=== PATIENT | female | born 1950 | race Caucasian/White ===

== ENCOUNTER 2016-08-13 06:30 | Day surgery (SDC) | payer MEDICARE, BC ==
[2016-08-13] MEDS ORDERED: Lactated Ringers 1,000 ML IV SCH ×2 (06:51→09:45)
[2016-08-13] MEDS ORDERED: fentaNYL 100 MCG/2 ML SDV ONE (07:35)
[2016-08-13] MEDS ORDERED: Propofol 200 MG/20 ML SDV ONE (07:35)
[2016-08-13] MEDS ORDERED: Midazolam 1 MG/ML 2 ML SDV ONE (07:35)
[2016-08-13 09:29] VITALS: BP 115/74
--- NOTE | 2016-08-14 07:10 | OR ---
DATE OF PROCEDURE: 08/13/2016 PREOPERATIVE DIAGNOSIS: Colon cancer screening. POSTOPERATIVE DIAGNOSIS: Diverticulosis. PROCEDURE: Colonoscopy to the cecum. ANESTHESIA: IV anesthesia with monitored anesthesia care. INDICATION: This 66-year-old white female is referred for a colonoscopy for colon cancer screening. She has never had a colonoscopic exam. I counseled her for the procedure including risks and alternatives and she gave her informed consent to proceed. DESCRIPTION OF PROCEDURE: The patient was placed in the left lateral decubitus position. IV anesthesia was administered by the Anesthesia Service. Time-out was held. A rectal exam was performed, which was unremarkable. The flexible video Olympus colonoscope was introduced through her anus, up her rectum, and out her colon all way to the cecum. En route, we saw several left-sided diverticula. There was no bleeding or inflammation associated with them. To reach the cecum, we had to apply some abdominal compression. Once the cecum was reached, the scope was slowly withdrawn examining the mucosa throughout. No additional mucosal abnormalities were noted. The scope was retroflexed in the rectum with the distal rectum appearing unremarkable. The scope was straightened and removed. She tolerated the procedure well. Luciano Sweet MD /[id number] [email or web address]
== END 2016-08-13 09:33 | disposition home or self-care (01) ==
LOC: JP.SDS 06:30
PROVIDERS: ATTEND Surgery
PROC: 0DJD8ZZ Inspection of Lower Intestinal Tract, Via Natural or Artificial Opening Endoscopic (ICD-10-PCS; principal; 2016-08-13)
DX: Z12.11 Encounter for screening for malignant neoplasm of colon (principal); K57.90 Diverticulosis of intestine, part unspecified, without perforation or abscess without bleeding; Z88.0 Allergy status to penicillin; Z88.2 Allergy status to sulfonamides
CPT/HCPCS: G0121; J2250; J2704; J3010; J7120

== ENCOUNTER 2016-10-12 01:23 | Emergency (ER) | payer MEDICARE, BC ==
[2016-10-12 01:54] VITALS: BP 131/89
--- NOTE | 2016-10-12 02:20 | EDM.PDOC ---
ED HPI GENERAL MEDICAL PROBLEM - General Chief Complaint: Abdominal Pain Stated Complaint: UPPER ABD PAIN Time Seen by Provider: 10/12/16 02:08 Source of Information: Reports: Patient, Family, RN Notes Reviewed History Limitations: Reports: No Limitations - History of Present Illness INITIAL COMMENTS - FREE TEXT/NARRATIVE: 66-year-old female presents emergency department a complaint of abdominal discomfort epigastric pain, she states pain has been going on for most of the day started 6:00 last night, will get nauseated at times no shortness of breath or chest pain no problems with bowel movements Abdomen Pain Score (Numeric/FACES): 5 - Related Data Allergies Allergy/AdvReac Type Severity Reaction Status Date / Time Penicillins Allergy Cannot Verified 10/12/16 01:43 Remember Sulfa (Sulfonamide Allergy Cannot Verified 10/12/16 01:43 Antibiotics) Remember Home Meds: Home Meds Albuterol [Ventolin 2 MG/5 ML] 2 puff INH Q4H PRN 08/11/16 [History] Ascorbic Acid [Vitamin C] 500 mg PO DAILY 08/11/16 [History] Calcium Carb/Magnesium Cmb #10 [George-Mag] 1 tab PO DAILY 08/11/16 [History] Pomegranate Fruit Extract [Pomegranate] 150 mg PO DAILY 08/11/16 [History] Zinc Gluconate [Zinc] 25 mg PO DAILY 08/11/16 [History] Past Medical History HEENT History: Reports: Impaired Vision Other HEENT History: wears glasses Respiratory History: Reports: Asthma Gastrointestinal History: Reports: Hemorrhoids Genitourinary History: Reports: Other (See Below) Other Genitourinary History: l kidney surgery at age 9 [employer] History: Reports: Musculoskeletal History: Reports: Fracture Neurological History: Reports: Concussion, Vertigo - Infectious Disease History Infectious Disease History: Reports: Chicken Pox, Measles - Past Surgical History HEENT Surgical History: Reports: Oral Surgery GI Surgical History: Reports: Appendectomy Musculoskeletal Surgical History: Reports: Hip Replacement Social & Family History - Family History Family Medical History: Noncontributory - Tobacco Use Smoking Status *Q: Never Smoker Second Hand Smoke Exposure: No - Caffeine Use Caffeine Use: Reports: Soda - Alcohol Use Days Per Week of Alcohol Use: 2 Number of Drinks Per Day: 1 Total Drinks Per Week: 2 - Recreational Drug Use Recreational Drug Use: No ED ROS GENERAL - Review of Systems Review Of Systems: See Below Constitutional: Reports: No Symptoms HEENT: Reports: No Symptoms Respiratory: Reports: No Symptoms Cardiovascular: Reports: No Symptoms GI/Abdominal: Reports: Abdominal Pain, Flatus, Nausea. Denies: Constipation, Diarrhea, Vomiting : Reports: No Symptoms Musculoskeletal: Reports: No Symptoms Skin: Reports: No Symptoms ED EXAM, GI/ABD - Physical Exam Exam: See Below Exam Limited By: No Limitations General Appearance: Alert, WD/WN, No Apparent Distress Neck: Normal Inspection, Supple, Non-Tender, Full Range of Motion Respiratory/Chest: No Respiratory Distress, Lungs Clear, Normal Breath Sounds, No Accessory Muscle Use, Chest Non-Tender Cardiovascular: Normal Peripheral Pulses, Regular Rate, Rhythm, No Murmur GI/Abdominal: Normal Bowel Sounds, Soft, Non-Tender, No Distention, No Abnormal Bruit Course - Vital Signs Last Recorded V/S: Last Vital Signs Temp 97.3 F 10/12/16 01:52 Pulse 83 10/12/16 01:52 Resp 20 10/12/16 01:52 BP 131/89 10/12/16 01:52 Pulse Ox 98 10/12/16 01:52 - Orders/Labs/Meds Orders: Active Orders 24 hr Category Date Time Status Cardiac Monitoring [RC] .As Directed Care 10/12/16 02:12 Active EKG Documentation Completion [RC] ASDIRECTED Care 10/12/16 02:14 Active EKG 12 Lead [EK] Stat Ther 10/12/16 02:14 Ordered Labs: Laboratory Tests 10/12/16 10/12/16 Range/Units 02:11 02:20 WBC 7.3 (4.5-11.0) K/uL RBC 4.49 (3.30-5.50) M/uL Hgb 13.3 (12.0-15.0) g/dL Hct 40.1 (36.0-48.0) % MCV 89 (80-98) fL MCH 30 (27-31) pg MCHC 33 (32-36) % Plt Count 198 (150-400) K/uL Neut % (Auto) 68 H (36-66) % Lymph % (Auto) 20 L (24-44) % Towns % (Auto) 11 H (2-6) % Eos % (Auto) 1 L (2-4) % Baso % (Auto) 0 (0-1) % Sodium 139 L (140-148) mmol/L Potassium 4.1 (3.6-5.2) mmol/L Chloride 104 (100-108) mmol/L Carbon Dioxide 25 (21-32) mmol/L Anion Gap 14.1 H (5.0-14.0) mmol/L BUN 21 H (7-18) mg/dL Creatinine 0.8 (0.6-1.0) mg/dL Est Cr Clr Drug Dosing 60.54 mL/min Estimated GFR (MDRD) > 60 (>60) Glucose 113 H (74-106) mg/dL Calcium 8.9 (8.5-10.1) mg/dL Total Bilirubin 0.5 (0.2-1.0) mg/dL AST 48 H (15-37) U/L ALT 37 (12-78) U/L Alkaline Phosphatase 68 (46-116) U/L Troponin I < 0.017 (0.000-0.056) ng/mL Total Protein 6.4 (6.4-8.2) g/dL Albumin 3.4 (3.4-5.0) g/dL Globulin 3.0 (2.3-3.5) g/dL Albumin/Globulin Ratio 1.1 L (1.2-2.2) Lipase 234 (73-393) U/L Departure - Departure Time of Disposition: 03:21 Disposition: Home, Self-Care 01 Condition: good Clinical Impression: Abdominal pain Qualifiers: Abdominal location: generalized Qualified Code(s): R10.84 - Generalized abdominal pain - Discharge Information Forms: ED Department Discharge Additional Instructions: continued use nonsteroidal anti-inflammatories as needed for pain control, Please followup with your primary care provider in 3-5 days if not better, please call return to the emergency department with worsening of symptoms. - My Orders Last 24 Hours: My Active Orders 10/12/16 02:12 Cardiac Monitoring [RC] .As Directed 10/12/16 02:14 EKG Documentation Completion [RC] ASDIRECTED EKG 12 Lead [EK] Stat - Assessment/Plan Last 24 Hours: My Active Orders 10/12/16 02:12 Cardiac Monitoring [RC] .As Directed 10/12/16 02:14 EKG Documentation Completion [RC] ASDIRECTED EKG 12 Lead [EK] Stat Plan: Assessment Acuity = acute Site and laterality = abdominal pain Etiology = probably secondary to muscular strain Manifestations = none Location of injury = home Lab values = CBC, CMP, EKG unremarkable Plan she denied any pain control while leaving the emergency department her pain has subsided plan is to discharge home follow primary care 3-5 days no improvement Patient was in agreement with the plan all questions were answered, they were instructed to return to the emergency department or call for worsening symptoms. This note was dictated using [email or web address] voice recognition software please call with any questions.
== END 2016-10-12 03:30 | disposition home or self-care (01) ==
LOC: JP.ED 01:23
DX: R10.84 Generalized abdominal pain (principal); H54.7 Unspecified visual loss; J45.909 Unspecified asthma, uncomplicated; Z88.0 Allergy status to penicillin; Z88.2 Allergy status to sulfonamides; Z79.899 Other long term (current) drug therapy; Z90.49 Acquired absence of other specified parts of digestive tract; Z96.649 Presence of unspecified artificial hip joint
CPT/HCPCS: 36415; 80053; 83690; 84484; 85025; 93005; 93010; 99283; 99284-25

== ENCOUNTER 2016-11-12 19:42 | Inpatient (IN) | payer MEDICARE, BC ==
[2016-11-12] MEDS ORDERED: Ondansetron 4 MG/2 ML SDV IVPUSH ONE (20:47)
[2016-11-12] MEDS ORDERED: Sodium Chloride 0.9% 1,000 ML IV SCH (21:00)
[2016-11-12] MEDS ORDERED: Iopamidol 612 MG/ML 100 ML Bottle IV PRN (21:05)
[2016-11-12] MEDS: Sodium Chloride 0.9% 10 ML Syringe FLUSH PRN ×2 (21:46→21:53)
--- NOTE | 2016-11-12 23:29 | EDM.PDOC ---
ED HPI GENERAL MEDICAL PROBLEM - General Chief Complaint: Gastrointestinal Problem Stated Complaint: NAUSEA / VOMITING Time Seen by Provider: 11/12/16 20:22 Source of Information: Reports: Patient History Limitations: Reports: No Limitations - History of Present Illness INITIAL COMMENTS - FREE TEXT/NARRATIVE: History of present illness: [66-year-old female presenting with intermittent colicky epigastric and right upper quadrant abdominal pain over the last couple of weeks sometimes associated with nausea and vomiting. She's never had anything like this before. She's had no fevers or chills with this no diarrhea no dysuria. She still has her gallbladder.] Review of systems: As per history of present illness and below otherwise all systems reviewed and negative. Past medical history: As per history of present illness and as reviewed below otherwise noncontributory. Surgical history: As per history of present illness and as reviewed below otherwise noncontributory. Social history: No reported history of drug or alcohol abuse. Family history: As per history of present illness and as reviewed below otherwise noncontributory. Physical exam: HEENT: Atraumatic, normocephalic, pupils reactive, negative for conjunctival pallor or scleral icterus, mucous membranes moist, throat clear, neck supple, nontender, trachea midline. Lungs: Clear to auscultation, breath sounds equal bilaterally, chest nontender. Heart: S1S2, regular, negative for clicks, rubs, or JVD. Abdomen: She has some tenderness to palpation of her epigastrium and right upper quadrant but no peritoneal signs bowel sounds are active Pelvis: Stable nontender. Genitourinary: Deferred. Rectal: Deferred. Extremities: Atraumatic, negative for cords or calf pain. Neurovascular unremarkable. Neuro: Awake, alert, oriented. Cranial nerves II through XII unremarkable. Cerebellum unremarkable. Motor and sensory unremarkable throughout. Exam nonfocal. Diagnostics: [Her CBC shows an elevated white count of 18,000 her liver enzymes are also elevated as well as alkaline phosphatase. CT examination is showing distended gallbladder] Therapeutics: [She's received IV fluids while here and has been comfortable] Impression: [Cholecystitis] Plan: [She's being admitted. I spoke with Milla about the admission. Dr. Blackwell is international representative for surgery] Definitive disposition and diagnosis as appropriate pending reevaluation and review of above. Upper Abdominal Pain Score (Numeric/FACES): 7 - Related Data Allergies Allergy/AdvReac Type Severity Reaction Status Date / Time Penicillins Allergy Cannot Verified 11/12/16 20:22 Remember Sulfa (Sulfonamide Allergy Cannot Verified 11/12/16 20:22 Antibiotics) Remember Home Meds: Home Meds Albuterol [Ventolin 2 MG/5 ML] 2 puff INH Q4H PRN 08/11/16 [History] Ascorbic Acid [Vitamin C] 500 mg PO DAILY 08/11/16 [History] Calcium Carb/Magnesium Cmb #10 [George-Mag] 1 tab PO DAILY 08/11/16 [History] Pomegranate Fruit Extract [Pomegranate] 150 mg PO DAILY 08/11/16 [History] Zinc Gluconate [Zinc] 25 mg PO DAILY 08/11/16 [History] Past Medical History HEENT History: Reports: Allergic Rhinitis, Impaired Vision Other HEENT History: wears glasses Respiratory History: Reports: Asthma Gastrointestinal History: Reports: Hemorrhoids Genitourinary History: Reports: Other (See Below) Other Genitourinary History: left kidney surgery at age 9 [employer] WORKER History: Reports: Musculoskeletal History: Reports: Fracture Neurological History: Reports: Concussion, Vertigo - Infectious Disease History Infectious Disease History: Reports: Chicken Pox, Measles, Shingles - Past Surgical History HEENT Surgical History: Reports: Oral Surgery, Other (See Below) Other HEENT Surgeries/Procedures: benign cycst removed in neck GI Surgical History: Reports: Appendectomy Musculoskeletal Surgical History: Reports: Hip Replacement Social & Family History - Family History Family Medical History: Noncontributory - Tobacco Use Smoking Status *Q: Never Smoker Second Hand Smoke Exposure: No - Caffeine Use Caffeine Use: Reports: None - Alcohol Use Days Per Week of Alcohol Use: 3 Number of Drinks Per Day: 1 Total Drinks Per Week: 3 - Recreational Drug Use Recreational Drug Use: No ED ROS GENERAL - Review of Systems Review Of Systems: ROS reveals no pertinent complaints other than HPI. ED EXAM, GI/ABD - Physical Exam Exam: See Below Course - Vital Signs Last Recorded V/S: Last Vital Signs Temp 37.6 C 11/12/16 20:30 Pulse 114 H 11/12/16 20:30 Resp 18 11/12/16 20:30 BP 111/76 11/12/16 20:30 Pulse Ox 96 11/12/16 20:30 - Orders/Labs/Meds Orders: Active Orders 24 hr Category Date Time Status Abdomen Pelvis w Cont [CT] Stat Exams 11/12/16 20:44 Taken Sodium Chloride 0.9% [Normal Saline] 1,000 ml Med 11/12/16 21:00 Active IV ASDIRECTED Sodium Chloride 0.9% [Saline Flush] Med 11/12/16 21:05 Active 10 ml FLUSH ONETIME PRN Medication Orders Sodium Chloride (Normal Saline) 1,000 mls @ 250 mls/hr IV ASDIRECTED YRN Last Admin: 11/12/16 21:46 Dose: 250 mls/hr Sodium Chloride (Saline Flush) 10 ml FLUSH ONETIME PRN PRN Reason: PER RADIOLOGY PROTOCOL Last Admin: 11/12/16 21:53 Dose: 10 ml Admin: 11/12/16 21:46 Dose: 10 ml Labs: Laboratory Tests 11/12/16 11/12/16 11/12/16 Range/Units 20:44 20:44 20:44 WBC 18.2 H (4.5-11.0) K/uL RBC 4.74 (3.30-5.50) M/uL Hgb 14.1 (12.0-15.0) g/dL Hct 42.0 (36.0-48.0) % MCV 89 (80-98) fL MCH 30 (27-31) pg MCHC 34 (32-36) % Plt Count 175 (150-400) K/uL Neut % (Auto) 92 H (36-66) % Lymph % (Auto) 2 L (24-44) % [place] % (Auto) 6 (2-6) % Eos % (Auto) 0 L (2-4) % Baso % (Auto) 0 (0-1) % Sodium 137 L (140-148) mmol/L Potassium 3.7 (3.6-5.2) mmol/L Chloride 102 (100-108) mmol/L Carbon Dioxide 29 (21-32) mmol/L Anion Gap 9.7 (5.0-14.0) mmol/L BUN 15 (7-18) mg/dL Creatinine 1.0 (0.6-1.0) mg/dL Est Cr Clr Drug Dosing 48.43 mL/min Estimated GFR (MDRD) 56 L (>60) Glucose 106 (74-106) mg/dL Lactic Acid 1.5 (0.4-2.0) mmol/L Calcium 9.2 (8.5-10.1) mg/dL Total Bilirubin 2.7 H D (0.2-1.0) mg/dL AST 461 H D (15-37) U/L ALT 328 H (12-78) U/L Alkaline Phosphatase 191 H D (46-116) U/L C-Reactive Protein 1.03 H (0.0-0.3) mg/dL Total Protein 7.0 (6.4-8.2) g/dL Albumin 3.3 L (3.4-5.0) g/dL Globulin 3.7 H (2.3-3.5) g/dL Albumin/Globulin Ratio 0.9 L (1.2-2.2) Amylase (25-115) U/L Lipase (73-393) U/L Urine Color Urine Appearance Urine pH (4.5-8.0) Ur Specific [place] (1.008-1.030) Urine Protein (NEGATIVE) mg/dL Urine Glucose (UA) (NEGATIVE) mg/dL Urine Ketones (NEGATIVE) mg/dL Urine Occult Blood (NEGATIVE) Urine Nitrite (NEGATIVE) Urine Bilirubin (NEGATIVE) Urine Urobilinogen (NORMAL) mg/dL Ur Leukocyte Esterase (NEGATIVE) Urine RBC (0-5) Urine WBC (0-5) Ur Epithelial Cells Amorphous Sediment Urine Bacteria Urine Mucus 11/12/16 11/12/16 Range/Units 20:46 22:33 WBC (4.5-11.0) K/uL RBC (3.30-5.50) M/uL Hgb (12.0-15.0) g/dL Hct (36.0-48.0) % MCV (80-98) fL MCH (27-31) pg MCHC (32-36) % Plt Count (150-400) K/uL Neut % (Auto) (36-66) % Lymph % (Auto) (24-44) % [place] % (Auto) (2-6) % Eos % (Auto) (2-4) % Baso % (Auto) (0-1) % Sodium (140-148) mmol/L Potassium (3.6-5.2) mmol/L Chloride (100-108) mmol/L Carbon Dioxide (21-32) mmol/L Anion Gap (5.0-14.0) mmol/L BUN (7-18) mg/dL Creatinine (0.6-1.0) mg/dL Est Cr Clr Drug Dosing mL/min Estimated GFR (MDRD) (>60) Glucose (74-106) mg/dL Lactic Acid (0.4-2.0) mmol/L Calcium (8.5-10.1) mg/dL Total Bilirubin (0.2-1.0) mg/dL AST (15-37) U/L ALT (12-78) U/L Alkaline Phosphatase (46-116) U/L C-Reactive Protein (0.0-0.3) mg/dL Total Protein (6.4-8.2) g/dL Albumin (3.4-5.0) g/dL Globulin (2.3-3.5) g/dL Albumin/Globulin Ratio (1.2-2.2) Amylase 95 (25-115) U/L Lipase 163 (73-393) U/L Urine Color Yellow Urine Appearance Slightly cloudy Urine pH 9.0 H (4.5-8.0) Ur Specific [place] 1.010 (1.008-1.030) Urine Protein Negative (NEGATIVE) mg/dL Urine Glucose (UA) Normal (NEGATIVE) mg/dL Urine Ketones Negative (NEGATIVE) mg/dL Urine Occult Blood Negative (NEGATIVE) Urine Nitrite Negative (NEGATIVE) Urine Bilirubin Negative (NEGATIVE) Urine Urobilinogen Normal (NORMAL) mg/dL Ur Leukocyte Esterase Negative (NEGATIVE) Urine RBC Not seen (0-5) Urine WBC 0-5 (0-5) Ur Epithelial Cells Rare Amorphous Sediment Not seen Urine Bacteria Rare Urine Mucus Not seen Meds: Medications Generic Name Dose Route Start Last Admin Trade Name Freq PRN Reason Stop Dose Admin Sodium Chloride 1,000 mls @ 250 mls/hr 11/12/16 21:00 11/12/16 21:46 Normal Saline IV 250 mls/hr ASDIRECTED YRN Administration Sodium Chloride 10 ml 11/12/16 21:05 11/12/16 21:53 Saline Flush FLUSH 10 ml ONETIME PRN Administration PER RADIOLOGY PROTOCOL Discontinued Medications Generic Name Dose Route Start Last Admin Trade Name Freq PRN Reason Stop Dose Admin Sodium Chloride 70 mls @ 3 mls/sec 07/12/17 21:05 11/12/16 21:53 Normal Saline IV 11/12/16 21:06 3 mls/sec ONETIME ONE Administration Iopamidol 90 ml 11/12/16 21:05 11/12/16 21:53 Isovue-300 (61%) IV 11/12/16 21:06 100 ml . DIRECTED PRN Administration RADIOLOGY EXAM Ondansetron HCl 4 mg 11/12/16 20:47 11/12/16 21:44 Zofran IVPUSH 11/12/16 20:48 4 mg ONETIME ONE Administration Departure - Departure Time of Disposition: 23:28 Disposition: Admitted As Inpatient 67 Condition: Good Clinical Impression: Cholecystitis - Discharge Information Forms: ED Department Discharge - My Orders Last 24 Hours: My Active Orders 11/12/16 20:44 Abdomen Pelvis w Cont [CT] Stat 11/12/16 21:00 Sodium Chloride 0.9% [Normal Saline] 1,000 ml IV ASDIRECTED 11/12/16 21:05 Sodium Chloride 0.9% [Saline Flush] 10 ml FLUSH ONETIME PRN - Assessment/Plan Last 24 Hours: My Active Orders 11/12/16 20:44 Abdomen Pelvis w Cont [CT] Stat 11/12/16 21:00 Sodium Chloride 0.9% [Normal Saline] 1,000 ml IV ASDIRECTED 11/12/16 21:05 Sodium Chloride 0.9% [Saline Flush] 10 ml FLUSH ONETIME PRN
[2016-11-13] MEDS ORDERED: Albuterol 0.083% 2.5 MG/3 ML Neb Soln NEB PRN (00:52)
[2016-11-13] MEDS ORDERED: Ondansetron 4 MG Tab.DIS PO PRN (00:52)
[2016-11-13] MEDS ORDERED: Morphine 2 MG/ML Syringe IVPUSH PRN (00:52)
[2016-11-13] MEDS ORDERED: Zolpidem 5 MG Tab PO PRN (00:52)
[2016-11-13] MEDS ORDERED: LORazepam 2 MG/ML MDV IV PRN (00:52)
[2016-11-13] MEDS ORDERED: Bisacodyl 5 MG Tab PO PRN (00:52)
[2016-11-13] MEDS ORDERED: Albuterol 2 MG/5 ML Syrup ML 473 ML Bottle PRN (00:52)
[2016-11-13] MEDS ORDERED: oxyCODONE 5 MG Tab PO PRN (00:52)
[2016-11-13] MEDS: Acetaminophen 325 MG Tab PO PRN (01:14)
[2016-11-13] MEDS: Sodium Chloride 0.9% 1,000 ML IV SCH ×3 (02:21→22:19)
--- NOTE | 2016-11-13 02:29 | PCM.HP ---
H&P History of Present Illness - General Date of Service: 11/12/16 Admit Problem/Dx: Admission Diagnosis/Problem Admission Diagnosis/Problem Cholecystitis Source of Information: Patient History Limitations: Reports: No Limitations - History of Present Illness Initial Comments - Free Text/Narative: History of present illness: [66-year-old female presenting with intermittent colicky epigastric and right upper quadrant abdominal pain over the last couple of weeks sometimes associated with nausea and vomiting. She's never had anything like this before. She's had no fevers or chills with this no diarrhea no dysuria. She still has her gallbladder.] Review of systems: As per history of present illness and below otherwise all systems reviewed and negative. Past medical history: As per history of present illness and as reviewed below otherwise noncontributory. Surgical history: As per history of present illness and as reviewed below otherwise noncontributory. Social history: No reported history of drug or alcohol abuse. Family history: As per history of present illness and as reviewed below otherwise noncontributory. Physical exam: HEENT: Atraumatic, normocephalic, pupils reactive, negative for conjunctival pallor or scleral icterus, mucous membranes moist, throat clear, neck supple, nontender, trachea midline. Lungs: Clear to auscultation, breath sounds equal bilaterally, chest nontender. Heart: S1S2, regular, negative for clicks, rubs, or JVD. Abdomen: She has some tenderness to palpation of her epigastrium and right upper quadrant but no peritoneal signs bowel sounds are active Pelvis: Stable nontender. Genitourinary: Deferred. Rectal: Deferred. Extremities: Atraumatic, negative for cords or calf pain. Neurovascular unremarkable. Neuro: Awake, alert, oriented. Cranial nerves II through XII unremarkable. Cerebellum unremarkable. Motor and sensory unremarkable throughout. Exam nonfocal. Diagnostics: [Her CBC shows an elevated white count of 18,000 her liver enzymes are also elevated as well as alkaline phosphatase. CT examination is showing distended gallbladder] Therapeutics: [She's received IV fluids while here and has been comfortable] Impression: [Cholecystitis] Plan: [She's being admitted. Onset of Symptoms: Reports: Gradual Duration of Symptoms: Reports: Recurring, Waxing/Waning Location: Reports: Abdomen Quality: Reports: Same as Previous Episode Severity: Severe Improves with: Reports: Medication, Movement, Rest Worsens with: Reports: Movement Context: Reports: Other Associated Symptoms: Reports: Nausea/Vomiting Upper Abdominal Pain Score (Numeric/FACES): 7 Headache Pain Score (Numeric/FACES): 3 - Related Data Allergies/Adverse Reactions: Allergies Allergy/AdvReac Type Severity Reaction Status Date / Time Penicillins Allergy Cannot Verified 11/12/16 20:22 Remember Sulfa (Sulfonamide Allergy Cannot Verified 11/12/16 20:22 Antibiotics) Remember Home Medications: Home Meds Albuterol [Ventolin 2 MG/5 ML] 2 puff INH Q4H PRN 08/11/16 [History] Ascorbic Acid [Vitamin C] 500 mg PO DAILY 08/11/16 [History] Calcium Carb/Magnesium Cmb #10 [George-Mag] 1 tab PO DAILY 08/11/16 [History] Pomegranate Fruit Extract [Pomegranate] 150 mg PO DAILY 08/11/16 [History] Zinc Gluconate [Zinc] 25 mg PO DAILY 08/11/16 [History] Past Medical History HEENT History: Reports: Allergic Rhinitis, Impaired Vision Other HEENT History: wears glasses Respiratory History: Reports: Asthma, Other (See Below) Other Respiratory History: hay fever Gastrointestinal History: Reports: Hemorrhoids Genitourinary History: Reports: Other (See Below) Other Genitourinary History: left kidney surgery at age 9 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: Musculoskeletal History: Reports: Fracture Neurological History: Reports: Concussion, Vertigo - Infectious Disease History Infectious Disease History: Reports: Chicken Pox, Measles, Shingles - Past Surgical History HEENT Surgical History: Reports: Oral Surgery, Other (See Below) Other HEENT Surgeries/Procedures: benign cycst removed in neck GI Surgical History: Reports: Appendectomy Musculoskeletal Surgical History: Reports: Hip Replacement Social & Family History - Family History Family Medical History: Noncontributory - Tobacco Use Smoking Status *Q: Never Smoker Second Hand Smoke Exposure: No - Caffeine Use Caffeine Use: Reports: None - Alcohol Use Days Per Week of Alcohol Use: 3 Number of Drinks Per Day: 1 Total Drinks Per Week: 3 Date of Last Drink: 11/08/16 Time of Last Drink: 19:00 - Recreational Drug Use Recreational Drug Use: No - Living Situation & Occupation Living situation: Reports: Occupation: Employed (own a resort, 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 .) H&P Review of Systems - Review of Systems: Review Of Systems: See Below General: Reports: Fever, Chills, Malaise, Fatigue HEENT: Reports: No Symptoms Pulmonary: Reports: No Symptoms Cardiovascular: Reports: No Symptoms Gastrointestinal: Reports: Abdominal Pain, Nausea, Vomiting Genitourinary: Reports: No Symptoms Musculoskeletal: Reports: Back Pain Skin: Reports: No Symptoms Psychiatric: Reports: No Symptoms Neurological: Reports: No Symptoms Hematologic/Lymphatic: Reports: No Symptoms Immunologic: Reports: No Symptoms Exam - Exam Exam: See Below - Vital Signs Vital Signs: Last Vital Signs Temp 37.3 C 11/13/16 00:52 Pulse 80 11/13/16 00:52 Resp 20 11/13/16 00:52 BP 105/55 L 11/13/16 00:52 Pulse Ox 95 11/13/16 00:52 Weight: 56.382 kg - Exam General: Alert, Oriented, Cooperative, Mild Distress, Sedated HEENT: PERRLA, Hearing Intact, Mucosa Moist & [place], Nares Patent, Normal Nasal Septum, Posterior Pharynx Clear, Conjunctiva Clear, EOMI, EACs Clear, TMs Clear Neck: Supple, Trachea Midline, 2 Lungs: Clear to Auscultation, Normal Respiratory Effort Cardiovascular: Regular Rate, Regular Rhythm Abdomen: Normal Bowel Sounds, Soft, Tenderness (upper abdomen; more intense pain at right upper quadrant) Back Exam: Normal Inspection, Full Range of Motion, NT Extremities: 3, Normal Inspection, 10 Skin: Warm, Dry, Intact Neurological: Cranial Nerves Intact, Reflexes Equal Bilateral Neuro Extensive - Mental Status: Alert, Oriented x3, Normal Mood/Affect, Normal Cognition Neuro Extensive - Motor, Sensory, Reflexes: Normal Gait, Normal Reflexes Psychiatric: Alert, Normal Affect, Normal Mood - Patient Data Result Diagrams: 11/13/16 05:05 11/13/16 05:05 *Q Meaningful Use (ADM) - VTE *Q VTE Criteria *Q: - Stroke *Q Stroke Criteria *Q: - AMI *Q AMI Criteria *Q: - Problem List (1) Cholecystitis SNOMED Code(s): 26960130 ICD Code: K81.9 - CHOLECYSTITIS, UNSPECIFIED Status: Acute Current Visit : Yes Problem List Initiated/Reviewed/Updated: Yes Orders Last 24hrs: Active Orders 24 hr Category Date Time Status Patient Status [ADT] Routine ADT 11/13/16 00:52 Active Intake and Output [RC] QSHIFT Care 11/13/16 00:52 Active Notify Provider Consults [RC] ASDIRECTED Care 11/13/16 00:52 Active Oxygen Therapy [RC] PRN Care 11/13/16 00:52 Active RT Aerosol Therapy [RC] ASDIRECTED Care 11/13/16 00:52 Active Up ad Giovana [RC] ASDIRECTED Care 11/13/16 00:52 Active VTE/DVT Education [RC] Per Unit Routine Care 11/13/16 00:52 Active Vital Signs [RC] Q4H Care 11/13/16 00:52 Active Consult to Physician [CONS] Routine Cons 11/13/16 00:52 Ordered Nothing per Oral After Midnight Diet [DIET] Diet 11/13/16 Breakfast Active Abdomen Ltd [US] Stat Exams 11/13/16 07:10 Ordered BASIC METABOLIC PANEL,BMP [CHEM] AM Lab 11/13/16 05:11 Ordered CBC WITH AUTO DIFF [HEME] AM Lab 11/13/16 05:11 Ordered Acetaminophen [Tylenol] Med 11/13/16 00:52 Active 650 mg PO Q4H PRN Albuterol [Proventil Neb Soln] Med 11/13/16 00:52 Active 2.5 mg NEB Q4H PRN Albuterol [Ventolin 2 MG/5 ML] Med 11/13/16 00:52 Pending DOSE mg .XX Q4H PRN Bisacodyl [Dulcolax] Med 11/13/16 00:52 Active 5 mg PO DAILY PRN Docusate Sodium [Colace] Med 11/13/16 00:52 Active 100 mg PO BID PRN LORazepam [Ativan] Med 11/13/16 00:52 Active 1 mg IV Q6H PRN Morphine Med 11/13/16 00:52 Active 2 mg IVPUSH Q2H PRN Ondansetron [Zofran ODT] Med 11/13/16 00:52 Active 4 mg PO Q6H PRN Pantoprazole [ProTONIX] Med 11/13/16 09:00 Active 40 mg PO DAILY Sodium Chloride 0.9% [Normal Saline] 1,000 ml Med 11/13/16 00:52 Active IV ASDIRECTED Zolpidem [Ambien] Med 11/13/16 00:52 Active 5 mg PO BEDTIME PRN oxyCODONE Med 11/13/16 00:52 Active 5 mg PO Q4H PRN Sequential Compression Device [OM.PC] Per Unit Routine Oth 11/13/16 00:52 Ordered Resuscitation Status Routine Resus Stat 11/12/16 23:54 Ordered Medication Orders Acetaminophen (Tylenol) 650 mg PO Q4H PRN PRN Reason: Pain (Mild 1-3)/fever Last Admin: 11/13/16 01:14 Dose: 325 mg Albuterol (Proventil Neb Soln) 2.5 mg NEB Q4H PRN PRN Reason: Shortness Of Breath/wheezing Albuterol (Ventolin 2 Mg/5 Ml) mg .XX Q4H PRN PRN Reason: Dyspnea Bisacodyl (Dulcolax) 5 mg PO DAILY PRN PRN Reason: Constipation Docusate Sodium (Colace) 100 mg PO BID PRN PRN Reason: Constipation Sodium Chloride (Normal Saline) 1,000 mls @ 250 mls/hr IV ASDIRECTED [facility] Last Admin: 11/12/16 21:46 Dose: 250 mls/hr Sodium Chloride (Normal Saline) 1,000 mls @ 125 mls/hr IV ASDIRECTED [facility] Last Admin: 11/13/16 02:21 Dose: 125 mls/hr Lorazepam (Ativan) 1 mg IV Q6H PRN PRN Reason: Nausea/Vomiting Morphine Sulfate (Morphine) 2 mg IVPUSH Q2H PRN PRN Reason: Pain (severe 7-10) Ondansetron HCl (Zofran Odt) 4 mg PO Q6H PRN PRN Reason: Nausea able to take PO Oxycodone HCl (Oxycodone) 5 mg PO Q4H PRN PRN Reason: Pain (moderate 4-6) Pantoprazole Sodium (Protonix) 40 mg PO DAILY [facility] Sodium Chloride (Saline Flush) 10 ml FLUSH ONETIME PRN PRN Reason: PER RADIOLOGY PROTOCOL Last Admin: 11/12/16 21:53 Dose: 10 ml Admin: 11/12/16 21:46 Dose: 10 ml Zolpidem Tartrate (Ambien) 5 mg PO BEDTIME PRN PRN Reason: Sleep Assessment/Plan Comment:: ASSESSMENT AND PLAN: History of present illness: 66-year-old female presenting with intermittent colicky epigastric and right upper quadrant abdominal pain over the last couple of weeks sometimes associated with nausea and vomiting. She's never had anything like this before. She's had no fevers or chills with this no diarrhea no dysuria. She still has her gallbladder.] Plan Cholecystitis -Admit to [address] [place] [address] for further monitoring -IV Fluids for rehydration NS at 125 mL per hour -Advise to notify nurses of any chest pain or other symptoms -medication order for pain control -medication order for nausea -And a.m. labs: CBC, BMP -abdomen ultrasound in am -consult to Surgery, after ultrasound abdomen is completed this morning. Maintenance issues -Orders home meds: -Nutrition: consistent diet -Rodríguez catheter not indicated at this time -DVT: SCD -PPI; IV Protonix 40mg daily CODE STATUS: FULL CODE Admission status: Admit to [address] [place] [address] Admission justification. This patient will be admitted for inpatient services and is medically appropriate meeting medical necessity for inpatient admission as outlined in my documentation. I reasonably expect the patient will require inpatient services that span. Time over 2 midnights. I reasonably expect this patient to be discharged or transferred within 96 hours after admission to the critical access hospital. Disposition; home Primary care provider: Tayla Messina Hospitalist: Dr. Tsai
--- NOTE | 2016-11-13 08:36 | US ---
Abdomen Ltd INDICATION: dilatated gall bladder FINDINGS: Normal hepatic echotexture. No intra- or extrahepatic bile duct dilatation. Common bile du ct measures 6 mm. Small amount of gallbladder sludge; difficult to exclude a polyp within the sludge . No gallbladder wall thickening. The gallbladder measures 5.0 cm x 6.2 cm. Aorta and IVC are normal where visualized. Pancreas is normal where seen. Survey views of the right kidney are negative for hydronephrosis. Normal variant extrarenal right renal pelvis. IMPRESSION: Small amount of gallbladder sludge; difficult to exclude polyp within the sludge.
[2016-11-13] MEDS ORDERED: Pantoprazole 40 MG Tab.CR PO SCH (09:00)
[2016-11-13] MEDS ORDERED: Albuterol 8 GM Inhaler INH PRN (10:18)
[2016-11-13] MEDS: Pantoprazole 40 MG Tab.CR PO SCH (10:20)
--- NOTE | 2016-11-13 12:15 | PCM.PN ---
- General Info Date of Service: 11/13/16 Functional Status: Reports: pain controlled, urinating - Review of Systems General: Reports: Fever, Weakness. Denies: Chills Pulmonary: Reports: no symptoms Cardiovascular: Reports: No Symptoms Gastrointestinal: Reports: Abdominal pain, Decreased appetite, Nausea. Denies: Constipation, Difficulty swallowing, Hematochezia, Melena, Vomiting Systems Review Comment:: This patient is a 66-year-old woman who is admitted through the emergency department with upper abdominal pain associated with nausea and vomiting. On evaluation is found to have elevated white blood cell count as well as elevation in liver enzymes. CT scan of the abdomen was done in the emergency department and showed no obvious abnormalities to explain her symptoms. Ultrasound was also obtained and showed sludge within the gallbladder but no other significant abnormalities. On laboratory tests morning her bilirubin remains elevated, white blood cell count has improved modestly. Symptoms of abdominal pain as well as nausea have improved significantly since admission but not totally resolved. - Patient Data Vitals - most recent: Last Vital Signs Temp 97.7 F 11/13/16 07:00 Pulse 61 11/13/16 07:00 Resp 18 11/13/16 07:00 BP 100/52 L 11/13/16 07:00 Pulse Ox 98 11/13/16 07:00 Weight - most recent: 124 lb 4.8 oz I&O - last 24 hours: Intake & Output 11/12/16 11/13/16 11/13/16 22:59 06:59 14:59 Intake Total 490 Output Total 500 Balance -10 Lab Results last 24 hrs: Laboratory Results - last 24 hr 11/13/16 11/13/16 11/13/16 Range/Units 05:05 05:05 08:37 WBC 16.7 H (4.5-11.0) K/uL RBC 4.17 (3.30-5.50) M/uL Hgb 12.4 (12.0-15.0) g/dL Hct 37.2 (36.0-48.0) % MCV 89 (80-98) fL MCH 30 (27-31) pg MCHC 33 (32-36) % Plt Count 160 (150-400) K/uL Neut % (Auto) 89 H (36-66) % Lymph % (Auto) 5 L (24-44) % [place] % (Auto) 6 (2-6) % Eos % (Auto) 0 L (2-4) % Baso % (Auto) 0 (0-1) % Sodium 142 (140-148) mmol/L Potassium 4.0 (3.6-5.2) mmol/L Chloride 110 H (100-108) mmol/L Carbon Dioxide 25 (21-32) mmol/L Anion Gap 11.0 (5.0-14.0) mmol/L BUN 12 (7-18) mg/dL Creatinine 0.9 (0.6-1.0) mg/dL Est Cr Clr Drug Dosing 53.81 mL/min Estimated GFR (MDRD) > 60 (>60) Glucose 105 (74-106) mg/dL Calcium 8.6 (8.5-10.1) mg/dL Total Bilirubin 2.6 H (0.2-1.0) mg/dL Direct Bilirubin 1.99 H (0.0-0.2) mg/dL Indirect Bilirubin 0.61 AST 281 H (15-37) U/L ALT 278 H (12-78) U/L Alkaline Phosphatase 152 H (46-116) U/L Total Protein 5.8 L (6.4-8.2) g/dL Albumin 2.7 L (3.4-5.0) g/dL Globulin 3.1 (2.3-3.5) g/dL Albumin/Globulin Ratio 0.9 L (1.2-2.2) Med Orders - Current: Current Medications Acetaminophen (Tylenol) 650 mg PO Q4H PRN PRN Reason: Pain (Mild 1-3)/fever Last Admin: 11/13/16 01:14 Dose: 325 mg Albuterol (Proventil Neb Soln) 2.5 mg NEB Q4H PRN PRN Reason: Shortness Of Breath/wheezing Albuterol (Ventolin Hfa) 0 gm INH Q4H PRN PRN Reason: Dyspnea Bisacodyl (Dulcolax) 5 mg PO DAILY PRN PRN Reason: Constipation Docusate Sodium (Colace) 100 mg PO BID PRN PRN Reason: Constipation Sodium Chloride (Normal Saline) 1,000 mls @ 125 mls/hr IV ASDIRECTED YRN Last Admin: 11/13/16 10:23 Dose: 125 mls/hr Meropenem 1 gm/ Sodium (Chloride) 50 mls @ 100 mls/hr IV Q8H [facility] Last Admin: 11/13/16 10:23 Dose: 100 mls/hr Lorazepam (Ativan) 1 mg IV Q6H PRN PRN Reason: Nausea/Vomiting Morphine Sulfate (Morphine) 2 mg IVPUSH Q2H PRN PRN Reason: Pain (severe 7-10) Ondansetron HCl (Zofran Odt) 4 mg PO Q6H PRN PRN Reason: Nausea able to take PO Oxycodone HCl (Oxycodone) 5 mg PO Q4H PRN PRN Reason: Pain (moderate 4-6) Pantoprazole Sodium (Protonix) 40 mg PO ACBREAKFAST [facility] Last Admin: 11/13/16 10:20 Dose: Not Given Sodium Chloride (Saline Flush) 10 ml FLUSH ONETIME PRN PRN Reason: PER RADIOLOGY PROTOCOL Last Admin: 11/12/16 21:53 Dose: 10 ml Zolpidem Tartrate (Ambien) 5 mg PO BEDTIME PRN PRN Reason: Sleep Discontinued Medications Sodium Chloride (Normal Saline) 1,000 mls @ 250 mls/hr IV ASDIRECTED [facility] Last Admin: 11/12/16 21:46 Dose: 250 mls/hr Sodium Chloride (Normal Saline) 70 mls @ 3 mls/sec IV ONETIME ONE Stop: 11/12/16 21:06 Last Admin: 11/12/16 21:53 Dose: 3 mls/sec Iopamidol (Isovue-300 (61%)) 90 ml IV . DIRECTED PRN PRN Reason: RADIOLOGY EXAM Stop: 11/12/16 21:06 Last Admin: 11/12/16 21:53 Dose: 100 ml Ondansetron HCl (Zofran) 4 mg IVPUSH ONETIME ONE Stop: 11/12/16 20:48 Last Admin: 11/12/16 21:44 Dose: 4 mg Pantoprazole Sodium (Protonix) 40 mg PO DAILY YRN - Exam Quality Assessment: DVT prophylaxis General: alert, oriented, cooperative Lungs: Clear to auscultation, Normal respiratory effort Cardiovascular: Regular Rate, Regular Rhythm, No Murmurs Abdomen: bowel sounds present, soft, tenderness, distension. No: rigidity, rebound, guarding Extremities: no edema Skin: warm, dry, intact - Problem List Review Problem List Initiated/Reviewed/Updated: Yes - My Orders Last 24 Hours: My Active Orders 11/13/16 10:00 Meropenem [Merrem] 1 gm Sodium Chloride 0.9% [Normal Saline] 50 ml IV Q8H 11/13/16 10:22 Cholangiopancreatography [MR] Stat 11/14/16 05:00 CBC WITH AUTO DIFF [HEME] Timed COMPREHENSIVE METABOLIC PN,CMP [CHEM] Timed MAGNESIUM [CHEM] Timed - Plan Plan:: ASSESSMENT AND PLAN: Cholecystitis-elevated white blood cell count as well as liver enzymes. Will CT scan of the abdomen as well as right upper quadrant of ultrasound are unremarkable other than for some sludge within the gallbladder -IV Fluids for rehydration NS at 125 mL per hour -medication order for pain control -medication order for nausea -MRCP to further evaluate elevated liver enzymes -And a.m. labs: CBC, CMP -Consult Dr. Zarate for surgical follow-up Maintenance issues -Orders home meds: -Nutrition: Nothing by mouth pending further evaluation -Rodríguez catheter not indicated at this time -DVT: SCD -PPI; IV Protonix 40mg daily CODE STATUS: FULL CODE Admission status: Admit to [address] [place] [address] Admission justification. This patient will be admitted for inpatient services and is medically appropriate meeting medical necessity for inpatient admission as outlined in my documentation. I reasonably expect the patient will require inpatient services that span. Time over 2 midnights. I reasonably expect this patient to be discharged or transferred within 96 hours after admission to the critical access hospital. Disposition; home Primary care provider: Tayla Messina Hospitalist: Dr. Tsai
--- NOTE | 2016-11-13 13:23 | MR ---
Cholangiopancreatography INDICATION: Abd pain, elevated Bili COMPARISON: Ultrasound 11/13/[address] 11/12/2016. FINDINGS: Small amount of presumed sludge within the dependent portion of the gallbladder. Tiny scat tered hepatic cysts measuring less than 5 mm. Small left renal peripelvic cysts. No intra or extrahepatic bile duct dilatation. Common bile duct measures 6 mm. There is no evidence for filling defect within the common bile duct. The common bile duct tapers normally at the papilla. 4.6 cm duodenal diverticulum extending medially from the second portion of the duodenum. Exam other diaz unremarkable. IMPRESSION: 1. Gallbladder sludge. 2. Duodenal diverticulum.
--- NOTE | 2016-11-14 01:05 | CONS ---
DATE OF SERVICE: 11/13/2016 REFERRING PHYSICIAN: CONSULTING PHYSICIAN: Miguel A Zarate MD REASON FOR CONSULTATION: Abdominal pain. HISTORY OF PRESENT ILLNESS: A pleasant 66-year-old female, who presented to the emergency room with epigastric and right upper quadrant abdominal pain associated with eating greasy and fatty foods, which is complicated by nausea and vomiting recently. She states she has not had anything like this before, but on further discussion, this has happened previously. PAST SURGICAL HISTORY: Appendectomy. SOCIAL HISTORY: She runs a resort. FAMILY HISTORY: Noncontributory. REVIEW OF SYSTEMS: GENERAL: The patient is resting comfortably. HEENT: No symptoms. CARDIOVASCULAR: No history of myocardial infarction. RESPIRATORY: No history of shortness of breath. GASTROINTESTINAL: As above. GENITOURINARY: No dysuria. NEUROLOGIC: No symptoms. PSYCH: No symptoms. The remainder of the review of systems is reviewed and is negative. PHYSICAL EXAMINATION: VITAL SIGNS: Temperature 98.8, blood pressure 118/51, pulse 94, respirations 20, and 96% on room air. GENERAL: The patient is resting comfortably. HEENT: Pupils are equal. NECK: Supple. LUNGS: Clear. CARDIOVASCULAR: Regular rhythm and rate. ABDOMEN: Pain with palpation in the right upper quadrant. NEUROLOGIC: Oriented x3. PSYCH: No gross depression. EXTREMITIES: Full range of motion. Strength 5/5. LABORATORY DATA: MRCP, which I did review shows gallbladder sludge and duodenal diverticulum. ASSESSMENT: Right upper quadrant abdominal pain associated with nausea, vomiting, and gallbladder sludge. PLAN: The patient will be taken to the operating room for cholecystectomy. We discussed risks, benefits, alternatives, and limitations, including, but not limited to infection, bleeding, injury to common bile duct, cystic duct leaks, open surgery, and other risks not listed here. The patient understands these risks and wishes to proceed. Miguel A Zarate MD /[id number]
[2016-11-14] MEDS: Acetaminophen 325 MG Tab PO PRN ×3 (01:07→19:29)
[2016-11-14] MEDS: Sodium Chloride 0.9% 1,000 ML IV SCH ×3 (05:51→20:13)
[2016-11-14] MEDS ORDERED: Dexamethasone 4 MG/ML SDV ONE (08:15)
[2016-11-14] MEDS ORDERED: Neostigmine Methylsulfate 1 MG/ML 5 ML Syringe ONE (08:15)
[2016-11-14] MEDS ORDERED: Ondansetron 4 MG/2 ML SDV ONE (08:15)
[2016-11-14] MEDS ORDERED: Rocuronium 50 MG/5 ML Vial ONE (08:15)
[2016-11-14] MEDS ORDERED: fentaNYL 250 MCG/5 ML SDV ONE (08:15)
[2016-11-14] MEDS ORDERED: Propofol 200 MG/20 ML SDV ONE (08:15)
[2016-11-14] MEDS ORDERED: Succinylcholine/Normal Saline 200 MG/10 ML Syringe ONE (08:15)
[2016-11-14] MEDS ORDERED: Lidocaine 1% 50 ML MDV ONE (09:33)
[2016-11-14] MEDS ORDERED: Bupivacaine 0.5%/EPINEPHrine 1:200,000 50 ML MDV ONE (09:33)
[2016-11-14] MEDS ORDERED: Ketorolac 60 MG/2 ML SDV ONE (11:44)
[2016-11-14] MEDS: Docusate Sodium 100 MG Cap PO PRN (19:30)
[2016-11-15] MEDS: Acetaminophen 325 MG Tab PO PRN ×4 (00:56→17:44)
[2016-11-15] MEDS: Sodium Chloride 0.9% 1,000 ML IV SCH (04:25)
[2016-11-15] MEDS: Pantoprazole 40 MG Tab.CR PO SCH (08:12)
[2016-11-15] MEDS: Docusate Sodium 100 MG Cap PO PRN (09:40)
--- NOTE | 2016-11-15 13:01 | PN ---
DATE OF SERVICE: 11/15/2016 SUBJECTIVE: The patient is doing well. Pain is well controlled. No nausea, vomiting, shortness of breath, or chest pain. OBJECTIVE: VITAL SIGNS: Stable. She is afebrile. Blood pressure 114/48, pulse 51, respirations 16, 99% on room air. CARDIOVASCULAR: Regular rate and rhythm. RESPIRATORY: Lungs clear to auscultation bilaterally. LABORATORY DATA: Hemoglobin is stable at 11. Basic metabolic panel is essentially normal. Her total bilirubin started at 2.7 and is now normal. Her AST and ALT decreased from 3 to 400 down into the 100s. ASSESSMENT AND PLAN: Status post laparoscopic cholecystectomy and repair of choledocholithiasis. The patient will be discharged today. Please see discharge summary for further details. Miguel A Zarate MD /[id number]
--- NOTE | 2016-11-15 13:07 | DISCH ---
DISCHARGE DIAGNOSIS: Status post laparoscopic cholecystectomy and repair of choledocholithiasis. HOSPITAL COURSE: A pleasant 66-year-old female who was admitted for abdominal pain, diagnosed with probable cholelithiasis and definitely choledocholithiasis. The patient underwent a laparoscopic cholecystectomy with common bile duct exploration. She was noted to have sludge/small granular stones obstructing her bile duct. This was dilated and subsequently washed into the duodenum. In the postoperative state, this significantly made improvements as her bilirubin normalized and liver function test also normalized. On her last hospital day, her pain was well controlled. She had no nausea, vomiting, shortness of breath, or chest pain. She was afebrile. She was passing gas and requested to be discharged. FOLLOWUP: With Surgery in 7 to 14 days. ACTIVITY: No lifting greater than 30 pounds x30 days. DISCHARGE MEDICATIONS: [place] for pain, but please see MAR.
[2016-11-15 15:25] VITALS: BP 104/68
--- NOTE | 2016-11-17 07:53 | OR ---
DATE OF PROCEDURE: 11/14/2016 PROCEDURE: 1. Laparoscopic cholecystectomy with exploration of common bile duct (80708). 2. Removal of multiple calculi, common bile duct (85536). 3. Dilation of the sphincter of Oddi (63316). COMPLICATION: None. SEISMIC INTERPRETER: None. FINDINGS: 1. Small granular stones noted in distal common bile duct. 2. Cholelithiasis, cholecystitis. RISKS: Risks, benefits, alternatives, and limitations, including, but not limited to infection, bleeding, injury to the common bile duct especially with manipulation of the duct. We also discussed cystic duct leaks, common bile duct injuries, requirement for open surgery, abscess formation, biloma and seroma formation. We discussed the risks of not having the procedure. The patient understands these risks and wishes to proceed. PREOPERATIVE DIAGNOSIS: Cholelithiasis, choledocholithiasis. POSTOPERATIVE DIAGNOSIS: Cholelithiasis, choledocholithiasis. ANESTHESIA: General/local. PROCEDURE IN DETAIL: The patient was placed in supine position. A supraumbilical curvilinear incision was made. A Veress needle was used to enter the abdomen without abnormality. A drop test was performed without abnormality. This was followed by an Optiview trocar. The abdomen which had subsequently been inflated via the Veress needle was inspected no evidence of injury was noted during entry. An additional 10 was placed superior to this and two 5 mm ports in standard fashion. These were all placed under direct visualization. The gallbladder was retracted cephalad. A "clear view" of the gallbladder was then eventually obtained with dissecting 2/3 of the gallbladder, and a single 1/3 of the gallbladder remaining attached. A single lita was created in the cystic duct. A single lita was also created in the skin. The super elastic Nitinol wire was then introduced along with the common bile duct access catheter. This was able to under direct fluoroscopic guidance allow the wire to be advanced without difficulty. A cholangiogram was then performed. This patient was noted to have small granular type stones consistent with the sludge/granular appearance noted on CT scan. This would be washed into the duodenum, but first by dilating using the standard balloon dilation kit. This was dilated to approximately 1 mL gentle and under direct fluoroscopic guidance. After this, saline was used to flush the contents of the common bile duct into the duodenum. After completion, the cholangiogram did not show any evidence of leak or injury or retained stones. All common bile duct devices were removed. The cystic duct was clipped x3. This was visually inspected across the lumen completely and photos were taken of this. To this, the remaining 1/3rd of the gallbladder was removed off the bed using electrocautery. The associated artery was clipped x3 and transected. The remaining 1/3rd of the gallbladder was removed without difficulty. This was delivered via bag and inspected on the back table, and no abnormalities were noted associated with this gallbladder. The abdomen was irrigated and the air was subsequently removed. The wounds were closed with 3-0 Vicryl and 4-0 Vicryl in interrupted running fashion. Dermabond was applied. The patient tolerated the procedure well. Miguel A Zarate MD /[id number]
== END 2016-11-15 17:57 | disposition home or self-care (01) | DRG 446 ==
LOC: JP.ED 19:42 → UNDOADMIN 23:50 → JP.2SS 23:50 → UNDODISIN 11-15 17:57
PROVIDERS: ADMIT Hospitalist; ATTEND Hospitalist
PROC: 0FC94ZZ Extirpation of Matter from Common Bile Duct, Percutaneous Endoscopic Approach (ICD-10-PCS; principal; 2016-11-14)
DX: K81.9 Cholecystitis, unspecified (principal); K80.41 Calculus of bile duct with cholecystitis, unspecified, with obstruction; J45.909 Unspecified asthma, uncomplicated
CPT/HCPCS: 36415; 74177; 80053; 81001; 82150; 83605; 83690; 85025; 86140; 96361; 96374; 99285; J2405; J7030; J7040; J7050 ×2; Q9967; 74181; 74181-26; 76705; 76705-26; 80048; 80076; 83735; 85027; 88304; A9270-GY; J1100; J1885; J2185; J2704; J3010

== ENCOUNTER 2022-09-21 19:39 | Emergency (ER) | payer MEDICARE ==
[2022-09-21 20:26] VITALS: BP 127/72; PULSE 101
== END 2022-09-21 21:01 | disposition home or self-care (01) ==
LOC: JP.ED 19:39
DX: S30.861A Insect bite (nonvenomous) of abdominal wall, initial encounter (principal); A26.0 Cutaneous erysipeloid; J45.909 Unspecified asthma, uncomplicated; Z88.0 Allergy status to penicillin; Z88.2 Allergy status to sulfonamides; Z79.899 Other long term (current) drug therapy; W57.XXXA Bitten or stung by nonvenomous insect and other nonvenomous arthropods, initial encounter
CPT/HCPCS: 12001; 99282

== ENCOUNTER 2023-04-16 08:26 | Day surgery (SDC) | payer MEDICARE ==
[2023-04-16] MEDS ORDERED: Sodium Chloride 0.9% 10 ML Syringe FLUSH PRN (09:00)
[2023-04-16 10:12] VITALS: BP 140/70; PULSE 85
== END 2023-04-16 10:17 | disposition home or self-care (01) ==
LOC: JP.SDS 08:26
PROVIDERS: ATTEND Ophthalmology
DX: H26.9 Unspecified cataract (principal); Z88.0 Allergy status to penicillin; Z88.2 Allergy status to sulfonamides
CPT/HCPCS: 66984; J3490; V2632